=== PATIENT | male | born 1950 | race Caucasian/White ===

== ENCOUNTER 2019-11-04 18:58 | Inpatient (IN) | payer MEDICARE ==
[~2019-11-04] VITALS: Ht 188 cm; Wt 122.0 kg
[2019-11-04 20:00] VITALS: BP_SYST 154; BP_SYST 161; BP_DIAS 81; BP_DIAS 95
--- NOTE | 2019-11-04 20:00 | NUR ---
GPS RN-NOTE:ADMISSION ADMITTED A 69-YR OLD MALE, FROM [facility]. ADMITTED ON 5150 FOR DTS. PER HOLD, PT. STATED HE WAS AFRAID DUE TO COVID-19. HE WANTED TO TIE A ROPE AROUND A POLE ABOVE HIS BED AND KILL HIMSELF. UPON FACE TO FACE ASSESSMENT, PATIENT IS ALERT, ORIENTED X3, COOPERATIVE WITH CARE, CALM, FEELING DEPRESSED. VERBALIZATION OF FEELINGS ENCOURAGED. PT WAS ADVISED OF THE HOLD. PT'S RIGHTS HANDBOOK GIVEN. IN NO APPARENT DISTRESS NOTED. BELONGINGS WERE INVENTORIED AND CHECKED FOR CONTRABAND. PT. IS UNDER THE PSYCHIATRIC CARE OF DR. RUVALCABA ORDERS OBTAINED, AND UNDER THE MEDICAL CARE OF SHORTY JARQUIN, MED RECON DONE. PERFORMED SKIN BODY ASSESSMENT WITH SURGICAL HX OF RIGHT KNEE BELOW THE KNEE AMPUTATION. LEFT KNEE/NORTON AND LEFT FOOT/TOENAILS WOUND. WOUND CONSULT ORDERED. BED LOCKED AND PLACED IN LOWEST POSITION TO MAINTAIN SAFETY. FALL PRECAUTIONS IMPLEMENTED. WILL CONTINUE TO MONITOR Q15 MINS. FOR SAFETY AND BEHAVIOR.
[2019-11-04] MEDS ORDERED: LORAZEPAM 1 MG TABLET PO PRN (20:30)
[2019-11-04] MEDS ORDERED: ZOLPIDEM TARTRATE 5 MG TABLET PO PRN (20:30)
[2019-11-04] MEDS ORDERED: MAG HYDROX/AL HYDROX/SIMETH 30 ML UDC PO PRN (20:30)
[2019-11-04] MEDS ORDERED: ACETAMINOPHEN 325 MG TABLET PO PRN (20:30)
[2019-11-04] MEDS ORDERED: MAGNESIUM HYDROXIDE 30 ML UDC PO PRN (20:30)
[2019-11-04] MEDS ORDERED: BLOOD SUGAR DIAGNOSTIC 1 EACH STRIP IN ONE (22:00)
[2019-11-04] MEDS ORDERED: GABA600T12 PO (22:06)
[2019-11-04] MEDS ORDERED: chole PO (22:06)
[2019-11-04] MEDS ORDERED: MULTIVITAMINS (22:06)
[2019-11-04] MEDS ORDERED: SUPER B COMPLEX (22:06)
[2019-11-04] MEDS ORDERED: metamucil (22:06)
[2019-11-04] MEDS ORDERED: OMEP20CA15 PO (22:06)
[2019-11-04] MEDS ORDERED: FURO40TA5 PO (22:06)
[2019-11-04] MEDS ORDERED: LOSARTAN PO (22:06)
[2019-11-04] MEDS ORDERED: DULO60CA45 PO (22:06)
[2019-11-04] MEDS ORDERED: [UNRECOGNIZED DRUG - OTHER] (22:06)
[2019-11-04] MEDS ORDERED: LOPE2CAP PO (22:06)
[2019-11-04] MEDS ORDERED: METO50TA16 PO (22:06)
[2019-11-04] MEDS ORDERED: MULT-1215 PO (22:06)
[2019-11-04] MEDS ORDERED: MAGNESIUM PO (22:06)
[2019-11-04] MEDS ORDERED: IBUP-1957 PO (22:06)
[2019-11-04] MEDS ORDERED: CEPH500C2 PO (22:18)
[2019-11-04] MEDS ORDERED: IBUPROFEN 800 MG TABLET PO PRN (23:00)
[2019-11-04] MEDS ORDERED: LOPERAMIDE HCL (2 MG CAP) 2 MG CAPSULE PO SCH (23:00)
[2019-11-05 07:16] LABS: BASOPHILS % (AUTO) 0.5 % (0.0-2.0); EOSINOPHILS % (AUTO) 2.3 % (0.0-6.0); HEMATOCRIT 30 % (39-51); HEMOGLOBIN 10.1 g/dL (13.5-17.5); LYMPHOCYTES % (AUTO) 28.7 % (20.0-44.0); MEAN CORPUSCULAR HGB CONC 33 g/dl (31.0-36.0); MEAN CORPUSCULAR VOLUME 105 fL (80-96); MONOCYTES # (AUTO) 0.2 /CMM (0.1-1.30); MONOCYTES % (AUTO) 6.5 % (2.0-12.0); NEUTROPHILS # (AUTO) 2.2 /CMM (1.8-8.9); PLATELET COUNT (AUTO) 137 /CMM (150-450); WHITE BLOOD COUNT (AUTO) 3.5 K/uL (4.3-11.0)
[2019-11-05] MEDS ORDERED: IBUPROFEN 400 MG TABLET PO PRN (07:30)
[2019-11-05 07:36] LABS: ALBUMIN 2.8 g/dL (3.4-5.0); CALCIUM, SERUM 8.9 mg/dL (8.5-10.1); CREATININE 1.1 mg/dL (0.6-1.3); POTASSIUM 4.3 mmol/L (3.5-5.1); TOTAL PROTEIN, SERUM 6.8 g/dL (6.4-8.2)
[2019-11-05 08:00] VITALS: BP 158/81
[2019-11-05] MEDS: PANTOPRAZOLE 40 MG TABLET.DR PO SCH (08:21)
[2019-11-05] MEDS: MULTIVITAMINS,THERAGRAN 1 UDTAB TABLET PO SCH (08:21)
[2019-11-05] MEDS: METOPROLOL TARTRATE 50 MG TABLET PO SCH ×3 (08:21→16:41)
[2019-11-05] MEDS: FUROSEMIDE 40 MG TABLET PO SCH (08:21)
[2019-11-05] MEDS ORDERED: OMEPRAZOLE 20 MG CAPSULE.DR PO SCH (09:00)
[2019-11-05 09:16] LABS: EOSINOPHILS % (MANUAL) 1 % (0-4); LYMPHOCYTES % (MANUAL) 29 % (16-48); MONOCYTES % (MANUAL) 6 % (0-11.0); NEUTROPHILS % (MANUAL) 64 (42-76)
[2019-11-05] MEDS: DULOXETINE HCL 30 MG CAPSULE.DR PO SCH (14:55)
[2019-11-05 16:00] VITALS: BP 125/63
[2019-11-05] MEDS: GABAPENTIN 300 MG CAPSULE PO SCH (16:41)
[2019-11-05 20:00] VITALS: BP 110/45
--- NOTE | 2019-11-06 00:48 | NUR ---
GPS-RN NOTE: LOOSE STOOL PATIENT IS REPORTING THAT HE HAD EPISODES OF LOOSE STOOL X2 AND REQUESTING FOR LOPERAMIDE. ADMINISTERED ORDERED. WILL CONTINUE TO MONITOR.
[2019-11-06 08:00] VITALS: BP 138/86
[2019-11-06] MEDS: METOPROLOL TARTRATE 50 MG TABLET PO SCH ×2 (08:36→13:26)
[2019-11-06] MEDS: MULTIVITAMINS,THERAGRAN 1 UDTAB TABLET PO SCH (08:36)
[2019-11-06] MEDS: DULOXETINE HCL 30 MG CAPSULE.DR PO SCH (08:36)
[2019-11-06] MEDS: GABAPENTIN 300 MG CAPSULE PO SCH ×2 (08:36→13:26)
[2019-11-06] MEDS: FUROSEMIDE 40 MG TABLET PO SCH (08:36)
[2019-11-06] MEDS: PANTOPRAZOLE 40 MG TABLET.DR PO SCH (08:36)
[2019-11-06 13:26] VITALS: BP 136/80
--- NOTE | 2019-11-06 13:35 | NUR ---
GPS/RN-NOTES PATIENT WAS DISCHARGE AGAINST MEDICAL ADVISE, DR. RUVALCABA AND DR. QUIGLEY AWARE AND AGREES OF THE DISCHARGE. PATIENT DID NOT VERBALIZE SI/HI, DENIES VISUAL/AUDITORY HALLUCINATIONS AT THE TIME OF DISCHARGED. PATIENT STATED" I DON'T NEED ANY PRESCRIPTIONS, I STILL HAVE AT HOME". PATIENT STRONGLY REFUSED FULL BODY ASSESSMENT PRIOR TO DISCHARGE. REFUSED TO HAVE DISCHARGE PAPERS. PATIENT LEFT THE UNIT ALERT ORIENTED X4 ABLE TO WHEEL SELF WITH OWN WHEELCHAIR, ALL BELONGINGS WAS GIVEN BACK TO HIM INCLUDING OWN WHEELCHAIR ,HE WAS ASSISTED BY ONE STAFF IN THE LOBBY FOR SAFETY. ANIMAL BIOLOGIST BY SON SIXTO GARCIA VIA [employer]IVATE CAR.
== END 2019-11-06 13:35 | disposition left against medical advice (07) | DRG 881 ==
LOC: GPS 19:43
PROVIDERS: ADMIT Psychiatry & Neurology Psychiatry; ATTEND Nurse Practitioner Acute Care
DX: F32.9 Major depressive disorder, single episode, unspecified (principal); F10.229 Alcohol dependence with intoxication, unspecified; F29 Unspecified psychosis not due to a substance or known physiological condition; K21.9 Gastro-esophageal reflux disease without esophagitis; I10 Essential (primary) hypertension; E66.9 Obesity, unspecified; Z89.611 Acquired absence of right leg above knee; M19.90 Unspecified osteoarthritis, unspecified site; Z68.34 Body mass index [BMI] 34.0-34.9, adult; Z96.612 Presence of left artificial shoulder joint; Z96.611 Presence of right artificial shoulder joint; Y90.9 Presence of alcohol in blood, level not specified
CPT/HCPCS: 36415; 80048-TC; 80053-TC; 80061-TC; 82962-TC; 85025-TC; 87081-TC